=== PATIENT | male | born 1975 | race Caucasian/White ===

== ENCOUNTER 2019-02-10 16:10 | Outpatient (REF) | payer BC, SELFPAY ==
[2019-02-10 18:52] LABS: Anion Gap 10.5 mmol/L (3-11); BUN 21 mg/dL (7-18); CO2 26.5 mmol/L (21.0-32.0); CREATININE 1.43 mg/dL (0.70-1.30); Calcium 9.6 mg/dL (8.5-10.1); Chloride 105 mmol/L (98-107); Glucose 130 mg/dL (70-100); Potassium 3.7 mmol/L (3.5-5.1); Sodium 142 mmol/L (136-145)
[2019-02-10 19:03] LABS: Bilirubin Negative (Negative); Blood Negative (Negative); Clarity Cloudy (Clear); Glucose Negative (Negative); Ketones Negative (Negative); Leukocyte Esterase Negative (Negative); Nitrite Negative (Negative); Specific Gravity >= 1.030 (1.005-1.025); Urobilinogen 0.2 EU/dL (Up TO 0.2)
== END 2019-02-10 16:30 ==
LOC: NCHCO 16:10
PROVIDERS: PCP Family Medicine; Visit Provider Family Medicine
DX: I10 Essential (primary) hypertension (principal)
CPT/HCPCS: 80048; 81003

== ENCOUNTER 2019-02-26 00:33 | Outpatient (CLI) | payer BC, SELFPAY ==
--- NOTE | 2019-02-26 15:29 | DI.CT_ITS ---
EXAM: CT SINUS WO CLINICAL HISTORY: J33.9 NASAL POLYPOSIS. TECHNIQUE: Noncontrast COMPARISON: No exams were available for comparison FINDINGS: The frontal sinus is clear. There is a small retention cyst in the left ethmoid sinus. Small retentio n cysts are noted on the floor of the right and left maxillary antrum. The sphenoid sinus is normal. There is prominence of the nasal turbinates and findings suggesting nasal polyps. IMPRESSION: Mild inflammatory changes involving the maxillary and left ethmoid sinus are demonstrated. There is p rominence of the inferior nasal turbinates and the possibility of nasal polyps is raised.
== END 2019-02-26 00:53 ==
PROVIDERS: PCP Family Medicine; Visit Provider Otolaryngology Otolaryngology/Facial Plastic Surgery
DX: J33.9 Nasal polyp, unspecified (principal); J32.0 Chronic maxillary sinusitis; J32.2 Chronic ethmoidal sinusitis
CPT/HCPCS: 70486

== ENCOUNTER 2021-04-08 14:50 | Outpatient (REF) | payer BC, SELFPAY ==
[2021-04-09 13:43] LABS: COVID-19 RT-PCR UVMMC Result Negative (Negative)
== END 2021-04-08 14:51 | disposition home or self-care (01) ==
LOC: NCHCN 14:50
PROVIDERS: PCP Family Medicine; Visit Provider Family Medicine
DX: Z20.822 Contact with and (suspected) exposure to COVID-19 (principal); J06.9 Acute upper respiratory infection, unspecified
CPT/HCPCS: U0003

== ENCOUNTER 2021-04-22 16:17 | Outpatient (REF) | payer BC, SELFPAY ==
[2021-04-22 18:42] LABS: HGB 16.5 g/dL (13.5-17.5); MCH 28.6 pg (27.0-33.0); MCV 86.7 fL (80-95); MPV 10.7 fL (8.0-11.0); Platelet Count 277 10^3/uL (130-400); RBC 5.77 10^6/uL (4.36-5.78); RDW 13.2 % (11.8-14.1); RDW-SD 41.5 fL; WBC 6.18 10^3/uL (4.4-10.8)
[2021-04-22 18:58] LABS: ALT 46 U/L (16-63); AST 28 U/L (15-37); Albumin 4.3 g/dL (3.4-5.0); Alkaline Phosphatase 91 U/L (46-116); Anion Gap 10.2 mmol/L (3-11); BUN 20 mg/dL (7-18); Bilirubin, Total 0.6 mg/dL (0.2-1.0); CO2 26.8 mmol/L (21.0-32.0); CREATININE 1.3 mg/dL (0.70-1.30); Calcium 9.2 mg/dL (8.5-10.1); Chloride 103 mmol/L (98-107); Glucose 161 mg/dL (74-106); Potassium 3.8 mmol/L (3.5-5.1); Sodium 140 mmol/L (136-145); Total Protein 7.3 g/dL (6.4-8.2)
[2021-04-22 19:01] LABS: Hemoglobin A1C 5.5 % (<5.7)
[2021-04-25 10:28] LABS: Hepatitis C Ab w Rflx HCV PCR Negative (Negative)
[2021-04-25 10:30] LABS: HIV-1/2 Ag & Ab Screen Negative (Negative)
== END 2021-04-22 16:18 | disposition home or self-care (01) ==
LOC: NCHCN 16:17
PROVIDERS: PCP Family Medicine; Visit Provider Family Medicine
DX: I10 Essential (primary) hypertension (principal); E66.9 Obesity, unspecified; Z00.00 Encounter for general adult medical examination without abnormal findings; Z11.4 Encounter for screening for human immunodeficiency virus [HIV]; Z11.59 Encounter for screening for other viral diseases
CPT/HCPCS: 80053; 85027; 86803; 87389; 83036

== ENCOUNTER 2021-11-27 13:22 | Emergency (ER) | payer BC, SELFPAY ==
[2021-11-27] VITALS (43 sets, daily range): BP systolic 108–143; BP diastolic 74–99; PULSE 54–76; RESP 12–24; TEMP 36.3; O2SAT 92–95
--- NOTE | 2021-11-27 13:30 | RT.EKG_ITS ---
APPROVED REPORT Exam: Resting ECG Reason for Exam: syncope Patient Location: E HR:63 bpm ECG Measurements Heart Rate 63 AXIS SC 184 P 32 QRSd 126 QRS 90 QT 416 T 38 QTc 426 Conclusion Sinus rhythm...normal P axis, V-rate 60- 99 Nonspecific intraventricular conduction delay...QRSd >115mS, not LBBB/RBBB sinus rhythm, normal axis, normal inerals, incomplete LBBB
--- NOTE | 2021-11-27 13:45 | DI.RAD_ITS ---
Exam(s) XR PORTABLE CHEST AP EXAM: XR PORTABLE CHEST AP CLINICAL HISTORY: syncope TECHNIQUE: 2D digital imaging was performed of the chest. One image was obtained. An AP view was ob tained. COMPARISON: No exams were available for comparison FINDINGS: MEDIASTINUM: Normal. HEART: Normal. PULMONARY VASCULATURE: Normal. LUNGS: Clear. PLEURAL SPACE: No pleural effusion or pneumothorax. BONE:Within normal limits for the patient's age. Cervical spinal fusion is noted. OTHER FINDINGS:Normal. IMPRESSION: No acute pulmonary findings. DATA REPOSITORY: RADIATION DOSE DELIVERED:
[2021-11-27 13:53] LABS: Abs Immature Grans 0.02 10^3/uL (0.0-0.06); Absolute Basophil Count 0.07 10^3/uL (0.0-0.2); Absolute Eosinophil Count 0.46 10^3/uL (0.0-0.7); Absolute Lymphocyte Count 1.62 10^3/uL (1.2-3.4); Absolute Monocyte Count 0.64 10^3/uL (0.1-0.8); Absolute Neutrophil Count 3.46 10^3/uL (1.2-6.7); Basophils % 1.1; Eosinophils % 7.3; HCT 46.3 % (40.0-50.0); HGB 15.9 g/dL (13.5-17.5); Immature Grans % 0.3; Lymphocytes % 25.8; MCH 28.7 pg (27.0-33.0); MCHC 34.3 % (32.0-36.0); MCV 84 fL (80-95); MPV 9.8 fL (8.0-11.0); Monocytes % 10.2; Neutrophils % 55.3; Platelet Count 250 10^3/uL (130-400); RBC 5.54 10^6/uL (4.36-5.78); RDW 13.2 % (11.8-14.1); RDW-SD 39.9 fL; WBC 6.27 10^3/uL (4.4-10.8)
[2021-11-27] MEDS: Normal Saline 1,000 ML 1000 ML IV (13:53)
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
[2021-11-27] MEDS: Ondansetron 4 MG/2 ML VIAL IVP (14:03)
[2021-11-27 14:10] LABS: ALT 50 U/L (16-63); AST 36 U/L (15-37); Albumin 4.2 g/dL (3.4-5.0); Alkaline Phosphatase 84 U/L (46-116); Anion Gap 11.9 mmol/L (3-11); BUN 20 mg/dL (7-18); Bilirubin, Total 1.1 mg/dL (0.2-1.0); CO2 28.1 mmol/L (21.0-32.0); CREATININE 1.2 mg/dL (0.70-1.30); Calcium 9.1 mg/dL (8.5-10.1); Chloride 102 mmol/L (98-107); Glucose 119 mg/dL (74-106); Sodium 142 mmol/L (136-145); Total Protein 7.5 g/dL (6.4-8.2); Troponin I < 50 ng/L (<or=60)
[2021-11-27 14:11] LABS: Potassium 2.9 mmol/L (3.5-5.1)
[2021-11-27] MEDS: Potassium Chloride 20 MEQ TABCR PO (14:40)
--- NOTE | 2021-11-27 14:44 | DI.VRAD_ITS ---
PROCEDURE INFORMATION: Exam: XR Chest Exam date and time: 11/27/2021 2:08 PM Age: 46 years old Clinical indication: Other: Syncope TECHNIQUE: Imaging protocol: Radiologic exam of the chest. Views: 1 view. COMPARISON: No relevant prior studies available. FINDINGS: Lungs: Unremarkable. No consolidation. Pleural spaces: Unremarkable. No pleural effusion. No pneumothorax. Heart/Mediastinum: Unremarkable. No cardiomegaly. Bones/joints: Post anterior cervical spine fusion. IMPRESSION: No acute findings. Dictated and Authenticated by: Juju Winkler MD. Ordering:YAMILA Goetz MD
[2021-11-27] MEDS: POTASSIUM CHLORIDE 10 MEQ/100 ML BAG 100 MEQ IVPB (14:46)
--- NOTE | 2021-11-27 16:14 | NUR.NOTE ---
pt ambulated to the BR tolerated well. he states feeling better Nursing Note:
[2021-11-27 17:13] LABS: Troponin I < 50 ng/L (<or=60)
== END 2021-11-27 17:31 | disposition home or self-care (01) ==
PROVIDERS: Emergency Provider Emergency Medicine; PCP Family Medicine
DX: E86.0 Dehydration (principal); E87.6 Hypokalemia; T67.5XXA Heat exhaustion, unspecified, initial encounter; I10 Essential (primary) hypertension; R55 Syncope and collapse; Z79.899 Other long term (current) drug therapy; X30.XXXA Exposure to excessive natural heat, initial encounter; Y93.55 Activity, bike riding
CPT/HCPCS: 36415; 80053; 93005; 96365; 96375; 99284; 71045; 84484; 85025; 93010; 99285; J2405; J3480

== ENCOUNTER 2021-12-09 16:46 | Outpatient (REF) | payer BC, SELFPAY ==
[2021-12-09 15:30] LABS: Calculated LDL 93 mg/dL (<100); Cholesterol 167 mg/dL (<200); HDL Cholesterol 38 mg/dL (40-60); Potassium 3.2 mmol/L (3.5-5.1); Triglyceride 182 mg/dL (<150)
== END 2021-12-09 16:47 | disposition home or self-care (01) ==
LOC: NCHCN 16:46
PROVIDERS: PCP Family Medicine; Visit Provider Family Medicine
DX: I10 Essential (primary) hypertension (principal); E87.6 Hypokalemia
CPT/HCPCS: 80061; 84132

== ENCOUNTER 2022-03-15 17:15 | Outpatient (REF) | payer BC, SELFPAY ==
[2022-03-15 15:31] LABS: Anion Gap 8.5 mmol/L (3-11); BUN 24 mg/dL (7-18); CO2 28.5 mmol/L (21.0-32.0); CREATININE 1.1 mg/dL (0.70-1.30); Calcium 8.9 mg/dL (8.5-10.1); Chloride 104 mmol/L (98-107); Estimated GFR 84.89 (mL/min/1.73m2); Glucose 179 mg/dL (74-106); Potassium 4.7 mmol/L (3.5-5.1); Sodium 141 mmol/L (136-145)
== END 2022-03-15 17:16 | disposition home or self-care (01) ==
LOC: NCHCN 17:15
PROVIDERS: PCP Family Medicine; Visit Provider Family Medicine
DX: E87.6 Hypokalemia (principal)
CPT/HCPCS: 80048

== ENCOUNTER 2023-07-09 18:21 | Outpatient (REF) | payer BC, SELFPAY ==
[2023-07-09 15:38] LABS: Hemoglobin A1C 5.9 % (<5.7)
[2023-07-09 15:41] LABS: Anion Gap 8.2 mmol/L (3-11); BUN 24 mg/dL (7-18); CO2 29.8 mmol/L (21.0-32.0); CREATININE 1.2 mg/dL (0.70-1.30); Calcium 9.3 mg/dL (8.5-10.1); Chloride 102 mmol/L (98-107); Glucose 114 mg/dL (74-106); Potassium 4.3 mmol/L (3.5-5.1); Sodium 140 mmol/L (136-145)
== END 2023-07-09 18:22 | disposition home or self-care (01) ==
LOC: NCHCN 18:21
PROVIDERS: PCP Family Medicine; Visit Provider Family Medicine
DX: I10 Essential (primary) hypertension (principal); R73.03 Prediabetes
CPT/HCPCS: 80048; 83036

== ENCOUNTER 2023-11-28 19:38 | Emergency (ER) | payer BC, SELFPAY ==
[2023-11-28] VITALS (8 sets, daily range): BP systolic 124–134; BP diastolic 70–76; PULSE 81–91; RESP 12–19; TEMP 37.5; O2SAT 92–94
--- NOTE | 2023-11-28 19:45 | RT.EKG_ITS ---
APPROVED REPORT Exam: Resting ECG Reason for Exam: chest pain Patient Location: E HR:85 bpm ECG Measurements Heart Rate 85 AXIS MI 178 P 37 QRSd 112 QRS -33 QT 339 T 33 QTc 404 Conclusion Sinus rhythm 85 normal axis no stemi
--- NOTE | 2023-11-28 20:21 | ED.GENADUL_ITS ---
Discharge Plan Disposition Patient Disposition: Home Condition: Stable Discharge Details Clinical Impression: Tick-borne disease Primary Care Provider: Kayce Saravia ED Provider: Tim Ordonez Home Meds and New Rx's Prescriptions: New doxycycline hyclate 100 mg capsule 100 mg PO BID 21 Days Qty: 42 0RF Continued candesartan 16 mg tablet 16 mg PO DAILY chlorthalidone 25 mg Tablet 25 mg PO DAILY amlodipine 10 mg Tablet 10 mg PO DAILY Discharge Instructions Instructions: Lyme disease, Doxycycline, Lyme Disease Test Additional Instructions: You were seen in the emergency department for your likely tickborne illness, your tick panel is pending, you have fever and bodyaches and malaise, your EKG is reassuring for no signs of heart block or Lyme carditis. Please start empiric doxycycline, please check back in 2 to 5 days for results of your tickborne illness panel. Please take regular dose of Tylenol and ibuprofen for your symptoms as needed. Please return to the emergency department for palpitations, irregular heartbeat, chest pain, isolated severe joint swelling. Referrals: Kayce Saravia MD [Primary Care Provider] - Discharge Data Discharge Date/Time-TO BE ENTERED AT DEPARTURE: 11/28/23 21:04 HPI General Date/Time Provider Initiated Documentation: 11/28/23 19:48 . HPI Narrative: 48 year-old male presents to ED today by POV/ambulating with a chief complaint of malaise, fevers, body aches, back pain, and diarrhea, with some mild chest discomfort after noticing 2 tick bites on Sunday, feels they were on for at least 8 hours each. Quality described as generalized malaise, feels like crap, no radiation to high fever, intractable nausea vomiting, rash, isolated severe joint swelling, dizziness, palpitations, shortness of breath on exertion, does endorse some lightheadedness. Severity is described as moderate. Palliating factors include nothing specific attempted. Provoking factors include tick bites. Patient not anticoagulated. Related Data Home Medications ?Medication ?Instructions ?Recorded ?Confirmed amlodipine 10 mg tablet 10 mg PO DAILY 11/27/21 11/28/23 chlorthalidone 25 mg tablet 25 mg PO DAILY 11/27/21 11/28/23 candesartan 16 mg tablet 16 mg PO DAILY 08/31/23 11/28/23 doxycycline hyclate 100 mg capsule 100 mg PO BID 21 days #42 caps 11/28/23 Previous Rx's ?Medication ?Instructions ?Recorded doxycycline hyclate 100 mg capsule 100 mg PO BID 21 days #42 caps 11/28/23 Allergies Allergy/AdvReac Type Severity Reaction Status Date / Time No Known Allergies Allergy Unverified 11/28/23 20:03 General Stated Complaint: Dizzy/Sync MERCY: 3 Review of Systems All systems reviewed & are unremarkable except as noted in HPI and below Exam Narrative Exam Narrative: GENERAL APPEARANCE: Well-nourished, non-toxic, awake and alert, atraumatic, no acute distress. SKIN: Warm, pink, dry, intact, 2 macular tick bites to the left mid back without erythema migrans or erythematous base- patient stated he removed the ticks. HEAD: Normocephalic, atraumatic, normal hair distribution for gender/age. EYES: Pupils PERRLA, EOMs intact without nystagmus, normal conjunctiva, no exudates on lids/lashes. ENT: Nares patent, no circumoral cyanosis, no facial swelling NECK: Supple, trachea midline, painless cervical ROM. LUNGS/CHEST: Lungs CTA bilaterally, non-labored respirations, normal A/P diameter, symmetrical expansion, no chest wall deformity HEART (CV/PV): Regular rate and rhythm without murmur, no peripheral edema, no JVD. ABDOMEN: Soft, non-distended, no guarding. MSK: Normal ROM, no swelling/deformity to bilateral UEs or LEs, moving all extremities without weakness, no cyanosis, spine midline without tenderness, normal curvature. NEURO: Mental Status AAOx4 - alert to person, place, time, events No facial droop, no forehead involvement. Motor: No focal weakness - strength 5/5 in bilateral UEs and LEs, proximal and distal, symmetric. Sensory: sensation intact to light touch globally. Gait normal: patient ambulated without ataxia into ED room. PSYCH: euthymic, cooperative, pleasant, appropriate speech Course Vital Signs Vital signs: Vital Signs Temperature 37.5 C 11/28/23 19:42 Pulse 91 H 11/28/23 19:42 Respiratory Rate 16 11/28/23 19:42 Blood Pressure 134/76 11/28/23 19:42 Temperature 37.5 C 11/28/23 19:42 Temperature Source Temporal Artery Scan 11/28/23 19:42 Pulse 81 07/24/24 20:16 Pulse 81 11/28/23 20:16 Respiratory Rate 16 11/28/23 20:16 Respiratory Effort Normal, Non-Labored 11/28/23 20:01 Respiratory Depth Normal 11/28/23 20:01 Respiratory Pattern Normal 11/28/23 20:01 Blood Pressure 125/73 11/28/23 20:16 Blood Pressure Mean 87 11/28/23 20:16 Blood Pressure Position Sitting 11/28/23 19:42 Pulse Oximetry 92 11/28/23 20:16 Oxygen Delivery Method Room Air 11/28/23 19:42 Oxygen Flow Rate 0 11/28/23 19:42 Medical Decision Making This dictation utilizes [id number] dictation software and may contain unedited grammatical errors. 48 year-old male presents to ED today by POV/ambulating with a chief complaint of malaise, fevers, body aches, back pain, and diarrhea, with some mild chest discomfort after noticing 2 tick bites on Sunday, feels they were on for at least 8 hours each. Quality described as generalized malaise, feels like crap, no radiation to high fever, intractable nausea vomiting, rash, isolated severe joint swelling, dizziness, palpitations, shortness of breath on exertion, does endorse some lightheadedness. Severity is described as moderate. Palliating factors include nothing specific attempted. Provoking factors include tick bites. Patients' medical history: Recurrent sinusitis, GERD, hypertension. Family and social history: Noncontributory, no recent travel, sick contact. Pertinent exam findings / vital signs include tick bites to back without erythema migrans, nontoxic vitals, benign cardiopulmonary exam, neuro intact, benign abdomen. Differential / pathologies of concern include tickborne illness, viral syndrome, sepsis, lyme carditis Diagnostic studies of: -CBC, lactate, CMP, troponin I, tick panel, EKG. -CBC shows mild leukopenia of 4.3 with low lymphocytes consistent with tickborne illness, no other abnormalities -Lactate negative -CMP shows mild dehydration with a creatinine of 1.4 and BUN of 20 otherwise benign, likely due to poor p.o. intake -Troponin negative -Tick panel pending -EKG shows no heart block, normal sinus rhythm without ST changes, no diffuse ST depressions, not consistent with Lyme carditis Interventions of: -Started doxycycline. ED Course/Assessment/Plan: 48-year-old male presents with generalized malaise, body aches after noticing 2 tick bites on them on Sunday, ticks were embedded for at least 8 hours each, he has no rash consistent with erythema migrans but his syndrome is consistent with a tickborne illness especially with leukopenia and low lymphocytes. A started empiric doxycycline for 21 days advised him to check back for results of his tick panel in the next few days. Counseled on strict return criteria for palpitations, near syncope, chest pain, isolated severe joint swelling or profound lethargy with intractable nausea and vomiting. Findings not consistent with sepsis, Lyme carditis, acute coronary syndrome, encephalopathy. Disposition of tick-borne disease. Patient verbalized understanding of the plan and return to ED criteria and engaged in shared decision making. Medical Records Medical records reviewed: Yes I reviewed the patient's medical records. Lab Data Lab results reviewed: Yes I reviewed the patient's lab results. Labs: Laboratory Tests Range/Units 11/28/23 20:15 WBC (4.4-10.8) 10^3/uL 4.30 L RBC (4.36-5.78) 10^6/uL 5.01 Hgb (13.5-17.5) g/dL 14.4 Hct (40.0-50.0) % 42.8 MCV (80-95) fL 85 MCH (27.0-33.0) pg 28.7 MCHC (32.0-36.0) % 33.6 RDW (11.8-14.1) % 13.6 Plt Count (130-400) 10^3/uL 177 MPV (8.0-11.0) fL 9.7 Immature Gran % % 0.7 Neutrophils % % 66.0 Lymphocytes % % 16.5 Monocytes % % 14.2 Eosinophils % % 1.9 Basophils % % 0.7 Nucleated RBC % (0.0-0.3) % 0.0 Absolute Neutrophils (1.2-6.7) 10^3/uL 2.84 Absolute Lymphocytes (1.2-3.4) 10^3/uL 0.71 L Absolute Monocytes (0.1-0.8) 10^3/uL 0.61 Absolute Eosinophils (0.0-0.7) 10^3/uL 0.08 Absolute Basophils (0.0-0.2) 10^3/uL 0.03 VBG Lactate (0.6-1.4) mmol/L 1.3 Sodium (136-145) mmol/L 141 Potassium (3.5-5.1) mmol/L 3.6 Chloride (98-107) mmol/L 105 Carbon Dioxide (21.0-32.0) mmol/L 27.8 Anion Gap (3-11) mmol/L 8.2 BUN (7-18) mg/dL 20 H Creatinine (0.70-1.30) mg/dL 1.4 H Est GFR (CKD-EPI 2020) (mL/min/1.73m2) 62.77 Glucose (74-106) mg/dL 165 H Calcium (8.5-10.1) mg/dL 8.1 L Total Bilirubin (0.2-1.0) mg/dL 0.53 AST (15-37) U/L 24 ALT (16-63) U/L 41 Alkaline Phosphatase (46-116) U/L 90 Troponin I (< or =60) ng/L < 50 Total Protein (6.4-8.2) g/dL 6.5 Albumin (3.4-5.0) g/dL 3.4 Quality:SDOH Health Related Social Needs: No Data to Display PFSH All Active Problems (Updated 11/28/23 @ 20:53 by ISAIAH Bonilla) Tick-borne disease (Acute) Polyp, sinus maxillary (Acute) Recurrent sinusitis (Acute) Nasal turbinate hypertrophy (Acute) Deviated nasal septum (Acute) Obstructive sleep apnea (Chronic) Nasal obstruction (Acute) Environmental allergies (Acute) Nasal polyposis (Acute) Post-nasal drip (Acute) Chronic rhinitis (Acute) Foreign body in esophagus (Active 08/25/12) EGD by Dr. Raciel Metcalf on 08/25/2012 with retrival of foreign body. History of surgery (Active) Knee arthropathy. Gastroesophageal reflux disease (Active) Benign hypertension (Active) Social History Smoking/Tobacco Use Status: Never Smoking risk assessment performed?: Yes Alcohol Intake: never Drug use: Never Substance use type: does not use Do you feel safe at home: Yes Do you feel safe in your relationship?: Yes
[2023-11-28 20:22] LABS: Lactate 1.3 mmol/L (0.6-1.4)
[2023-11-28 20:24] LABS: Abs Immature Grans 0.03 10^3/uL (0.0-0.06); Absolute Basophil Count 0.03 10^3/uL (0.0-0.2); Absolute Eosinophil Count 0.08 10^3/uL (0.0-0.7); Absolute Lymphocyte Count 0.71 10^3/uL (1.2-3.4); Absolute Monocyte Count 0.61 10^3/uL (0.1-0.8); Absolute Neutrophil Count 2.84 10^3/uL (1.2-6.7); Basophils % 0.7 %; Eosinophils % 1.9 %; HCT 42.8 % (40.0-50.0); HGB 14.4 g/dL (13.5-17.5); Immature Grans % 0.7 %; Lymphocytes % 16.5 %; MCH 28.7 pg (27.0-33.0); MCHC 33.6 % (32.0-36.0); MCV 85 fL (80-95); MPV 9.7 fL (8.0-11.0); Monocytes % 14.2 %; Platelet Count 177 10^3/uL (130-400); RBC 5.01 10^6/uL (4.36-5.78); RDW 13.6 % (11.8-14.1); RDW-SD 42.1 fL
[2023-11-28 20:45] LABS: ALT 41 U/L (16-63); AST 24 U/L (15-37); Albumin 3.4 g/dL (3.4-5.0); Alkaline Phosphatase 90 U/L (46-116); Anion Gap 8.2 mmol/L (3-11); BUN 20 mg/dL (7-18); Bilirubin, Total 0.53 mg/dL (0.2-1.0); CO2 27.8 mmol/L (21.0-32.0); CREATININE 1.4 mg/dL (0.70-1.30); Calcium 8.1 mg/dL (8.5-10.1); Chloride 105 mmol/L (98-107); Estimated GFR 62.77 (mL/min/1.73m2); Glucose 165 mg/dL (74-106); Potassium 3.6 mmol/L (3.5-5.1); Sodium 141 mmol/L (136-145); Total Protein 6.5 g/dL (6.4-8.2); Troponin I < 50 ng/L (< or =60)
[2023-11-28] MEDS: Doxycycline Hyclate 100 MG CAP PO (21:04)
[2023-11-30 11:56] LABS: Lyme Ab w Rflx to Lyme Confirm Negative (Negative)
--- NOTE | 2023-12-01 14:02 | NUR.NOTE ---
Nursing Note: Pt here requesting tick panel results. All results are pending minus the Lyme which came back negative. Pt updated on negative Lyme and encouraged to use the portal to see all laboratory results.
[2023-12-02 00:02] LABS: Anaplasma phagocytophilum Negative (Negative); B. miyamotoi PCR Negative (Negative); Babesia divergens/MO-1 Negative (Negative); Babesia duncani Negative (Negative); Babesia microti Negative (Negative); Ehrlichia chaffeensis Negative (Negative); Ehrlichia ewingii/canis Negative (Negative); Ehrlichia muris eauclairensis Negative (Negative)
== END 2023-11-28 21:04 | disposition home or self-care (01) ==
PROVIDERS: Emergency Provider Physician Assistant; PCP Family Medicine
DX: S30.860A Insect bite (nonvenomous) of lower back and pelvis, initial encounter (principal); R52 Pain, unspecified; R53.81 Other malaise; B88.2 Other arthropod infestations; W57.XXXA Bitten or stung by nonvenomous insect and other nonvenomous arthropods, initial encounter
CPT/HCPCS: 36415; 80053; 87798; 93005; 99283; 83605; 84484; 85025; 86618; 93010

== ENCOUNTER 2024-05-14 18:19 | Outpatient (REF) | payer BC, SELFPAY ==
[2024-05-14 18:58] LABS: Anion Gap 8.6 mmol/L (3-11); BUN 15 mg/dL (7-18); CO2 29.4 mmol/L (21.0-32.0); CREATININE 1.2 mg/dL (0.70-1.30); Calcium 9.2 mg/dL (8.5-10.1); Chloride 105 mmol/L (98-107); Estimated GFR 75.53 (mL/min/1.73m2); Glucose 116 mg/dL (74-106); Potassium 4.2 mmol/L (3.5-5.1); Sodium 143 mmol/L (136-145)
== END 2024-05-14 18:20 | disposition home or self-care (01) ==
LOC: NCHCN 18:19
PROVIDERS: PCP Family Medicine; Visit Provider Family Medicine
DX: I10 Essential (primary) hypertension (principal); R73.03 Prediabetes
CPT/HCPCS: 80048; 83036

== ENCOUNTER 2024-06-13 09:15 | Day surgery (SDC) | payer BC, SELFPAY ==
[2024-06-13 09:46] VITALS: BP 130/96; PULSE 94; RESP 16; TEMP 36.3; O2SAT 93
[2024-06-13] MEDS: Lactated Ringers 1,000 ML 80 ML IV (10:05)
--- NOTE | 2024-06-13 10:44 | W.ANESPRE ---
General Info Date of Service Date Performed: 06/13/24 Height: 6 ft Weight: 114.6 kg Body Mass Index (BMI): 34.2 Surgical Procedure: Operation Date: 06/13/24 10:35 Proposed Procedure Side Surgeon marina Garvey MD Meds Allergies and Home Medications Allergies Allergy/AdvReac Type Severity Reaction Status Date / Time No Known Allergies Allergy Verified 06/13/24 09:43 Home Medication ?Medication ?Instructions ?Recorded amlodipine 10 mg tablet 10 mg PO DAILY 11/27/21 chlorthalidone 25 mg tablet 25 mg PO DAILY 11/27/21 candesartan 16 mg tablet 16 mg PO DAILY 08/31/23 fluticasone propionate 50 1 spray intranasal BID 03/07/24 mcg/actuation nasal spray,suspension (Flonase Allergy Relief) montelukast 10 mg tablet 10 mg PO DAILY PRN 05/22/24 bisacodyl 5 mg tablet,delayed 5 mg PO ONCE #4 tabs 05/29/24 release (Dulcolax (bisacodyl)) polyethylene glycol 3350 17 17 g PO ONCE #238 grams 05/29/24 gram/dose oral powder Current Visit Medications: Current Medications Generic Name Dose Route Start Last Admin Trade Name Freq PRN Reason Stop Dose Admin Ringer's Solution 1,000 mls @ 80 mls/hr 06/13/24 06:00 06/13/24 10:05 IV 06/13/24 23:59 80 mls/hr INFUSION TORRES Administration IV Miscellaneous Supplies 1 each 06/13/24 06:00 Iv Access IV 06/13/24 23:59 DIRECTED TORRES Sodium Chloride 0 ml 06/13/24 06:00 Normal Saline Flush 10 Ml Syr IV 06/13/24 23:59 PRN PRN Sodium Chloride 0 ml 06/13/24 06:00 Normal Saline 10 Ml Vial IJ 06/13/24 23:59 DIRECTED PRN Sterile Water 0 ml 06/13/24 06:00 Water,Injection,Sterile 10 Ml Vial IJ 06/13/24 23:59 DIRECTED PRN PFSH Active Problems Active Problems: Problem Status Onset Code History of nasal polyp Acute Z87.09 Polyp, sinus maxillary Acute J33.8 Recurrent sinusitis Acute J32.9 Nasal turbinate hypertrophy Acute J34.3 Deviated nasal septum Acute J34.2 Obstructive sleep apnea Chronic G47.33 Nasal obstruction Acute J34.89 Environmental allergies Acute Z91.09 Nasal polyposis Acute J33.9 Post-nasal drip Acute R09.82 Chronic rhinitis Acute J31.0 Foreign body in esophagus Active 08/25/12 T18.108A History of surgery Active Z98.89 Gastroesophageal reflux disease Active K21.9 Benign hypertension Active I10 Tobacco Smoking/Tobacco Use Status: Never Alcohol Alcohol Intake: former Details: Sober x 1 month Substance Use Substance use: Never Substance use type: does not use Vital Signs and Lab Results Vital Signs Most Recent Vital Signs in EMR: Most Recent Vital Signs Temp Pulse Resp BP Pulse Ox 36.3 C L 94 H 16 130/96 H 93 06/13/24 09:46 06/13/24 09:46 06/13/24 09:46 06/13/24 09:46 06/13/24 09:46 Lab Results Blood Type / Crossmatch: No Data to Display Complete Blood Count: No Data to Display Complete Metabolic Panel: Sodium 143 mmol/L (136-145) 05/14/24 15:20 Potassium 4.2 mmol/L (3.5-5.1) 05/14/24 15:20 Chloride 105 mmol/L (98-107) 05/14/24 15:20 Carbon Dioxide 29.4 mmol/L (21.0-32.0) 05/14/24 15:20 BUN 15 mg/dL (7-18) 05/14/24 15:20 Creatinine 1.2 mg/dL (0.70-1.30) 05/14/24 15:20 Est GFR (CKD-EPI 2020) 75.53 (mL/min/1.73m2) 05/14/24 15:20 Calcium 9.2 mg/dL (8.5-10.1) 05/14/24 15:20 Glucose 116 mg/dL (74-106) H 05/14/24 15:20 Hemoglobin A1c 6.0 % (<5.7) H 05/14/24 15:20 Liver Function Panel: No Data to Display Coagulation Panel: No Data to Display Cardiac Panel: No Data to Display Arterial Blood Gas: No Data to Display Venous Blood Gas: No Data to Display Pancreas Panel: No Data to Display Thyroid Panel: No Data to Display Infectious Disease: No Data to Display Blood Cultures: No Data to Display Toxicology Panel: No Data to Display Anesthesia Assessment and Plan Anesthesia History Personal History: No History of Anesthesia Complications Family History: No Family History of Anesthesia Complications Exercise Tolerance Exercise Tolerance: Metabolic Equivalents>4 Pertinent Negatives Pertinent Negatives: No Symptoms of GERD Cardiac & Pulmonary Exam Cardiac Exam: Normal S1/S2 Heart Sounds Pulmonary Exam: Clear Bilateral Breath Sounds Implantable Cardiac Device Does patient have a Pacemaker or an ICD?: No Airway Exam Known Difficult Airway: No Mallampati Class: 2 Mouth Opening: Normal (> 3cm) Thyromental Distance: Greater than 3 cm Neck Range of Motion: Full ROM Neck Circumference: Normal Teeth Condition: Normal Dentition ASA Classification ASA Score: ASA 2 Emergency Case?: No NPO Status NPO Status: NPO Clears >2 hours, Solids >8 hours Anesthesia Plan Resuscitation Status: Full Code Anesthesia Technique: General Anesthesia Airway Planned: Natural Airway Monitors Used: Standard Monitors
[2024-06-13 10:58] VITALS: BMI 34.2
[2024-06-13 11:18] VITALS: BP 104/80; PULSE 84; RESP 16; TEMP 36.8; O2SAT 93
--- NOTE | 2024-06-13 11:18 | COLE_ITS ---
Date of service: 06/13/24 Time of Service: 11:18 Colonoscopy Report Date of procedure: 06/13/24 Pre-op diagnosis general: screening for colon polyps Post-op diagnosis procedure note: same Procedure: Screening colonoscopy Surgeon: Diamond Garvey Anesthesia Type: General:No Airway Pathology: none sent Complications: None Indications: Routine screening Findings: Negative colonoscopy , good prep Procedure Description: After the risks, benefits, and alternatives of the procedure were thoroughly explained, informed consent was obtained. The Patient is brought to the pro cedure room and time out is performed confirming patient identity, nature of procedure. Patient is connected to monitoring devices including O2 sat, EKG and given supplemental oxygen per anesthesia. After appropriate anesthetic is obtained, patient is placed in the left lateral decubitus position and digital rectal exam performed with the findings noted . The colonoscope is inserted through the anus and guided under direct vision to the proximal colon as confirmed by presence of the appendiceal orifice and the ileocecal valve. The colonoscope is then slowly withdrawn , inspecting all aspects of the mucosa completely. Findings and any associated intervention, are noted above. The colonoscope was then completely withdrawn from the patient and the procedure terminated. The patient tolerated the procedure well and is transferred back to the Day surgery unit in stable condition.
[2024-06-13 11:48] VITALS: BP 120/93; PULSE 74; RESP 16; TEMP 36.8; O2SAT 95
--- NOTE | 2024-06-13 12:12 | W.ANESPOSTOP ---
Postoperative Evaluation Date, Time and Location Date Performed: 06/13/24 Time Performed: 11:20 Patient Location: Day Surgery Unit Vital Signs Most Recent Imported Vital Signs: Most Recent Vital Signs Temp Pulse Resp BP Pulse Ox 36.8 C 74 16 120/93 H 95 06/13/24 11:48 06/13/24 11:48 06/13/24 11:48 06/13/24 11:48 06/13/24 11:48 Pain Score Most Recent Pain Score: Most Recent Pain Score Pain Level 0 06/13/24 11:48 Assessment Mental Status: Awake (Alert & Oriented to Patient Baseline) Airway and Respiratory Function: Patent airway with normal (patient baseline) respiratory exam Cardiovascular Function: Hemodynamically Stable Hydration Status: Adequately Hydrated Nausea & Vomiting: No Nausea or Vomiting Pain: Pt. Denies Any Pain Peripheral Nerve Block: Patient did not receive a nerve block
== END 2024-06-13 12:06 | disposition home or self-care (01) ==
PROVIDERS: PCP Family Medicine; Visit Provider Surgery
PROC: 0DJD8ZZ Inspection of Lower Intestinal Tract, Via Natural or Artificial Opening Endoscopic (ICD-10-PCS; CPT 45378; principal; 2024-06-13 10:30)
DX: Z12.11 Encounter for screening for malignant neoplasm of colon (principal); I10 Essential (primary) hypertension; K21.9 Gastro-esophageal reflux disease without esophagitis; G47.33 Obstructive sleep apnea (adult) (pediatric)
CPT/HCPCS: 45378; J2704